=== PATIENT | male | born 1945 | race Caucasian/White ===

== ENCOUNTER 2025-05-22 18:43 | Inpatient (IN) ==
[2025-05-22] MEDS ORDERED: POLYETHYLENE (MIRALAX) 17 GM PACK PO PRN (20:35)
[2025-05-22] MEDS ORDERED: ALUMINUM/MAGNESIUM SUSP 30 ML UDC PO PRN (20:35)
[2025-05-22] MEDS ORDERED: ONDANSETRON INJ 2 MG/ML 2 ML VIAL IV PRN (20:35)
[2025-05-22] MEDS ORDERED: MoRPHine SULFATE 2 MG/ML CARP IV PRN (20:35)
--- NOTE | 2025-05-22 20:58 | History & Physical Report ---
"Date of Service May 22, 2025 Assessment & Plan (1) Acute appendicitis: (2) Hypertension: (3) Dyslipidemia: (4) Carotid artery stenosis: Plan Danny is 77 y/o male with PMH of carotid artery stenosis with hx of left MCA stroke s/p left carotid stent placement on 09/05/20, HTN, Hyperlipidemia, CKD here as a direct admit from [facility] due to acute appendicitis. Abdomen CT: acute appendicitis with fluid-filled dilated appendix and surrounding straining. Started on Zosyn. Transferred to [facility] for further management #Acute Appendicitis - Onset of symptoms 3 days ago with anorexia, abdominal discomfort - [facility] record reviewed - Abdomen CT: acute appendicitis with fluid-filled dilated appendix and surrounding straining. No evidence of rupture - Labs remarkable with hyponatremia, no leukocytosis - PAtient on arrival hemodynamically stable, no fever, no hypotension, Oxygent sat 97 at RA. BP elevated at 206/103 on arrival, patient asymptomatic - Pain 04/02 - Continue Zosyn - NPO at midnight - Pain control - LR 80 ml/hr at midnight - CBC AM, BMP am # Hypertension - Home meds ramipril, bisoprolol- hydrochlorothiazide - BP on arrival 206/103. Given hydralazine 5 mg IV once #CVA | Carotid artery stenosis s/p left carotid stent - Aspirin on hold - continue atorvastatin DVT prophylaxis: SCDs due to possible surgical intervention Admission and Anticipated Discharge Date Admission Date: May 22, 2025 History of Present Illness Primary Care Provider: Marguerite Ramirez PA-C Danny is 77 y/o male with PMH of carotid artery stenosis with hx of left MCA stroke s/p left carotid stent placement on 09/05/20, HTN, Hyperlipidemia, and CKD here as a direct admit from [facility] due to acute appendicitis. Onset of pain was 3 days ago with anorexia and abdominal discomfort. Abdomen CT: acute appendicitis with fluid-filled dilated appendix and surrounding straining. Started on Zosyn. Transferred to [facility] for further management. Denied any nausea, vomiting, no fever, no chills. Denied any chest pain SOB, palpitations or any other symptoms. Denied any edema. Allergies Allergy/AdvReac Type Severity Reaction Status Date / Time No Known Allergies Allergy Unverified 04/26/25 09:47 Home Medications Medication Instructions Recorded Confirmed Type atorvastatin 80 mg tablet 80 mg PO DAILY 05/29/21 05/22/25 History bisoprolol 10 1 tab PO DAILY 05/29/21 05/22/25 History mg-hydrochlorothiazide 6.25 mg tablet cholecalciferol (vitamin D3) 50 50 mcg PO DAILY 05/29/21 05/22/25 History mcg (2,000 unit) capsule (Vitamin D3) multivitamin (Multiple Vitamins 1 tab PO DAILY 05/29/21 05/22/25 History tablet) aspirin 81 mg tablet,delayed 81 mg PO DAILY 05/18/24 05/22/25 History release (Adult Aspirin Regimen) ramipril 10 mg capsule 10 mg PO DAILY #90 caps 05/18/24 05/22/25 Rx cetirizine 10 mg tablet (Zyrtec) 10 mg PO DAILY PRN Allergy Symptoms 05/22/25 05/22/25 History garlic 600 mg capsule 600 mg PO DAILY Cardiovascular 05/22/25 05/22/25 History health. oxycodone 5 mg tablet 5 mg PO Q6H PRN pain #12 tabs 05/23/25 Rx Past Med/Surg History Problem List (Updated 05/22/25 @ 22:00 by Teofilo Jackson MD) Acute appendicitis Osteoarthritis of left knee Pulmonary nodule Dyslipidemia Hypertension Carotid artery stenosis Flank pain (Acute) Vasovagal near syncope (Acute) Medical History Acute ischemic left middle cerebral artery (MCA) stroke Benign essential hypertension Chronic kidney disease Hyperlipidemia IFG (impaired fasting glucose) Symptomatic stenosis of left carotid artery Family History Mother Breast cancer Stroke Diabetes Father Hypertension Myocardial infarction Brother Hypertension Myocardial infarction Sister Stroke Social History Smoking Status: Former smoker Tobacco Type: Cigars Smoking End Date: Quit over 35 years.; Second Hand Exposure: No; Tobacco Cessation Education Requested by Patient: No Hx Alcohol Use: Yes Alcohol type: hard liquor Alcohol Intake Frequency Comment: Daily Hx Substance Use: No Preferred Language: Khmer Communication Ability: Effective Transportation Technician Required: No Beliefs That Will Affect Care: None Current Living Situation: Spouse Other Information That Helps Us Care for You: No Feels Safe at Home: Yes Safety Concerns: Feels Safe At This Time Physical Activity Frequency: 3-4 Times per Week Physical Activity Frequency Comment: Aerobics, biking Assistive Devices: Cane and Hospital Bed Assistive Devices Comment: Very seldom uses cane. Review of Systems Review of Systems: as per hpi Physical Exam Constitutional: WD/WN, vitals as above Eyes: PERRL, conjunctivae normal, anicteric sclerae ENMT: external ear and nose normal, oropharynx normal Respiratory: normal respiratory effort, lungs clear to auscultation Cardiovascular: RRR, no murmur, no edema Gastrointestinal (Abdomen): Inspection/Auscultation: abdomen normal to inspection and normal bowel sounds; abdomen not distended Percussion/Palpation: + abdomen tender (Right and left lower abdominal te ndernes) and abdomen soft; no guarding and abdomen not rigid Musculoskeletal: no cyanosis or clubbing, extremities motor strength 5/5 Skin: no rashes, warm and dry Results & Data Results & Data Vital Signs (Past 12 Hours) Vital Signs Temp Pulse Resp BP Pulse Ox O2 Del Method 05/22/25 20:07 36.8 C 68 18 206/103 H 97 Room Air Code Status & VTE Plan VTE Prophylaxis Plan VTE Prophylaxis will be ordered: Yes Supervising Physician Co-Signing Physician Notes Agree with Dr. Riki Jackson as above. Patient with acute appendicitis. Stable and non-toxic, pain controlled -Continue IV antibiotics, Zosyn -Pain control and anti-emetics as needed -Keep NPO -General Surgery consultation appreciated -Remainder as above Resident Activity Tracking Resident Involvement: Resident Care Provided Care Provided: Adult Hospital Medicine"
[2025-05-22 21:03] LABS: Appearance Urine Clear (Clear); Glucose Urine UA Negative (Negative)
[2025-05-22] MEDS: Patient's HEIGHT &/or WEIGHT Needed STA (21:14)
[2025-05-22] MEDS: 4.5GM X1 IV STA (21:20)
[2025-05-22] MEDS: ATORVASTATIN 40 MG TAB PO SCH (21:23)
[2025-05-22 21:29] LABS: Hematocrit (blood only) 42.9 % (42.0-52.0); Hemoglobin 15.2 g/dl (14.0-18.0); Immature Granulocytes # (auto) 0.04 K/uL (0.01-0.20); Immature Granulocytes % (auto) 0.4 %; Mean Corpuscular Hemoglobin 32.0 pg (25.0-34.0); Mean Corpuscular Volume 90.3 fL (80.0-100.0); Platelet Count 243 K/uL (130-400); RDW Standard Deviation 45.2 fL (36.4-46.3); Red Blood Count 4.75 M/uL (4.70-6.10); White Blood Count 9.83 K/ul (4.8-10.8)
[2025-05-22 21:40] LABS: Alanine Aminotransferase 14.0 U/L (7-52); Albumin Globulin Ratio 1.3 (0.9-2); Alkaline Phosphatase 88.0 U/L (34-104); Anion Gap 9.0 (3-11); Bilirubin,Total 1.1 mg/dl (0.2-1.0); Blood Urea Nitrogen 14.0 mg/dl (6-23); Calcium 8.5 mg/dl (8.6-10.3); Carbon Dioxide 24.0 mmol/L (21-32); Chloride 101.0 mmol/L (98-107); Creatinine Clr Calc Pharmacy 49.3 ml/min; Globulin 3.2 gm/dl (2.5-4.0); Glucose 101.0 mg/dl (70-99(Fasting)); Potassium 3.8 mmol/L (3.5-5.1); Sodium 134.0 mmol/L (136-145); Total Protein 7.3 gm/dl (6.0-8.3)
[2025-05-22 21:51] LABS: INR 1.0 (0.9-1.1); Partial Thromboplastin Time 26 Seconds (21-31); Prothrombin Time 10.6 Seconds (9.0-12.0)
[2025-05-23] MEDS: LACTATED RINGER'S 1,000 ML IV SCH
[2025-05-23] MEDS: PIPERACILLIN/TAZOBACTAM 4.5 GM/100 ML BAG IV SCH (04:55)
[2025-05-23 06:56] LABS: INR 1.0 (0.9-1.1); Partial Thromboplastin Time 27 Seconds (21-31); Prothrombin Time 11.0 Seconds (9.0-12.0)
--- NOTE | 2025-05-23 08:11 | Surgery Consultation ---
Date of Consultation May 23, 2025 Assessment & Plan (1) Acute appendicitis: Patient is a 79-year-old male with 4 days of abdominal pain. Originally presented to [facility] and upon workup was found to have acute appendicitis.The patient was transferred here as a direct admission under the medical service and general surgery was consulted for further surgical evaluation. The patient was seen and evaluated this morning at bedside. Resting comfortably in bed, vital signs stable, and is nontoxic-appearing. However the patient does have clinical exam findings consistent with appendicitis. Discussed with the patient treatment options which include conservative management with antibiotics versus surgical intervention. At this time patient agrees to undergo appendectomy. Discussed patient's case with attending surgeon, Dr. Loo, and from a surgical perspective recommend the following: - Keep n.p.o, continue IV fluids, antiemetics and pain medication as needed - Continue antibiotic coverage with Zosyn - Patient tentatively planned to undergo appendectomy for later this morning. Supervising Physician Co-Signing Physician Notes Patient seen and examined, labs and imaging reviewed, agree with above. 79-year-old male transferred from [facility] for appendicitis. He complains of abdominal pain starting few days ago that slowly migrated to the right lower quadrant. Some nausea, no fevers or vomiting. No prior abdominal surgeries, history of stroke status post carotid artery stent, takes a baby aspirin but no other blood thinners. On exam he is afebrile stable vitals. His abdomen is soft, tender to palpation with localized guarding in the right lower quadrant. WBC normal. CT scan personally reviewed and interpreted and agree with the assessment of a dilated appendix with some local inflammation consistent with an uncomplicated acute appendicitis. Plan for laparoscopic appendectomy Risks discussed include but not limited to bleeding, infection, normal appendix, conversion open, damage to surrounding structures, need for future more extensive surgery, abscess, and the risk of anesthesia Potential discharge this afternoon Wound care instructions, activity restrictions reviewed Acetaminophen and/or NSAIDs as needed pain, will prescribe oxycodone for breakthrough pain Follow-up in 2 weeks in general surgery clinic Return precautions given, call with questions or concerns History of Present Illness Reason for Consultation: acute appendicitis History of Present Illness Patient is a 79-year-old male who originally presented to outside facility with complaints of abdominal pain for 3 days. Patient states that on Friday he started with abdominal pain in his mid abdomen region. He originally contributed it to a stomach bug, however after 3 days the pain did not improve and started to migrate down into his lower abdomen, mostly on the right side, which prompted him to go to the emergency department. He states that he did have some ongoing nausea and decreased appetite however denies any episodes of emesis. The patient otherwise denies any new onset of fevers, chills, or changes in bowel or bladder habits. The patient was worked up at outside facility and and was found to have findings of appendicitis and was transferred here to [facility] for surgical evaluation. The patient was seen and evaluated this morning at bedside, resting comfortably in bed, vital signs stable. Patient states he is still experiencing lower abdominal pain, however denies any nausea or vomiting at this time. Patient denies any previous abdominal surgeries in the past and does not take any anticoagulation medication but is on Aspirin. Allergies Allergy/AdvReac Type Severity Reaction Status Date / Time No Known Allergies Allergy Unverified 04/26/25 09:47 Home Medications Medication Instructions Recorded Confirmed Type atorvastatin 80 mg tablet 80 mg PO DAILY 05/29/21 05/22/25 History bisoprolol 10 1 tab PO DAILY 05/29/21 05/22/25 History mg-hydrochlorothiazide 6.25 mg tablet cholecalciferol (vitamin D3) 50 50 mcg PO DAILY 05/29/21 05/22/25 History mcg (2,000 unit) capsule (Vitamin D3) multivitamin (Multiple Vitamins 1 tab PO DAILY 05/29/21 05/22/25 History tablet) aspirin 81 mg tablet,delayed 81 mg PO DAILY 05/18/24 05/22/25 History release (Adult Aspirin Regimen) ramipril 10 mg capsule 10 mg PO DAILY #90 caps 05/18/24 05/22/25 Rx cetirizine 10 mg tablet (Zyrtec) 10 mg PO DAILY PRN Allergy Symptoms 05/22/25 05/22/25 History garlic 600 mg capsule 600 mg PO DAILY Cardiovascular 05/22/25 05/22/25 History health. Patient History Medical History Acute ischemic left middle cerebral artery (MCA) stroke Benign essential hypertension Chronic kidney disease Hyperlipidemia IFG (impaired fasting glucose) Symptomatic stenosis of left carotid artery Family History Mother Breast cancer Stroke Diabetes Father Hypertension Myocardial infarction Brother Hypertension Myocardial infarction Sister Stroke Social History Smoking Status: Former smoker Tobacco Type: Cigars Smoking End Date: Quit over 35 years.; Second Hand Exposure: No; Tobacco Cessation Education Requested by Patient: No Hx Alcohol Use: Yes Alcohol type: hard liquor Alcohol Intake Frequency Comment: Daily Hx Substance Use: No Preferred Language: Luxembourgish Communication Ability: Effective 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 Review of Systems Constitutional: no fever, no chills and no weakness Respiratory: no cough, no dyspnea and no wheezing Cardiovascular: no chest pain, no palpitations and no syncope Gastrointestinal: as per Subjective / HPI, + abdominal pain and + nausea; no vomiting Genitourinary: no dysuria, no urinary frequency or no flank pain Physical Exam Constitutional: WD/WN, vitals as above Respiratory: normal respiratory effort, lungs clear to auscultation Cardiovascular: Rate/Rhythm: regular rate Gastrointestinal (Abdomen): Abdomen soft, nondistended, moderate tenderness palpation in the right lower quadrant, +McBurney point, +Rovsing Skin: no rashes, warm and dry Results & Data Vital Signs (Past 12 Hours) Vital Signs Temp Pulse Resp BP Pulse Ox O2 Del Method 05/23/25 07:42 36.8 C 60 18 181/87 H 97 Room Air 05/22/25 21:59 59 L 16 166/72 H 98 Room Air 05/22/25 20:07 36.8 C 68 18 206/103 H 97 Room Air 05/22/25 20:00 36.8 C 68 18 206/103 H 97 Room Air Diagnostic Findings Outside facility CT imaging with acute appendicitis with fluid-filled dilated appendix and surrounding stranding PG Care Time/CCT Total # of Minutes Spent Total Time Spent with Patient: Total time spent is greater than 50% in coordination of care (as documented) at patient's floor/unit and/or counseling patient: [place] [address] INT INP/OBS CARE 40MIN Patient Type New Medical Decision Making Straight Forward Diagnoses Acute appendicitis K35.80
[2025-05-23] MEDS: BISOPROLOL FUMARATE 5 MG TAB PO SCH (08:48)
[2025-05-23] MEDS: ENALAPRIL MALEATE 10 MG TAB PO SCH (08:48)
[2025-05-23] MEDS ORDERED: ATORVASTATIN 40 MG TAB PO SCH (09:00)
[2025-05-23] MEDS ORDERED: DEXAMETHASONE SOD INJ 4 MG/ML VIAL ONE (09:05)
[2025-05-23] MEDS ORDERED: NEOSTIGMINE METHYLSULFATE 1 MG/ML 10ML VIAL ONE (09:05)
[2025-05-23] MEDS ORDERED: ONDANSETRON INJ 2 MG/ML 2 ML VIAL ONE (09:05)
[2025-05-23] MEDS ORDERED: GLYCOPYRROLATE 0.2 MG/ML VIAL ONE (09:05)
[2025-05-23] MEDS ORDERED: LIDOCAINE 2% 2 ML VIAL/AMP(20MG/ML) INFIL ONE (09:05)
[2025-05-23] MEDS ORDERED: PROPOFOL IV EMULSION 10 MG/ML 20 ML VIAL IV ONE (09:05)
[2025-05-23] MEDS ORDERED: MIDAZOLAM HCL 1 MG/ML 2ML VIAL ONE (09:05)
[2025-05-23] MEDS ORDERED: ROCURONIUM BROMIDE 10 MG/ML 5 ML VIAL IV ONE (09:05)
--- NOTE | 2025-05-23 09:40 | Hospitalist Progress Note ---
"Date of Service May 23, 2025 Assessment & Plan (1) Acute appendicitis: Plan Mr. Delgado is 77 y/o male with PMH of carotid artery stenosis with hx of left MCA stroke s/p left carotid stent placement on 09/05/20, HTN, Hyperlipidemia, CKD here as a direct admit from [facility] due to acute appendicitis. Planning for OR with Dr. Loo on 05/23. Continue Zosyn empirically. #Acute Appendicitis Onset of symptoms 3 days ago with anorexia, abdominal discomfort Transferred to [place] on 05/22 from [facility] record reviewed on admission Abdomen CT: acute appendicitis with fluid-filled dilated appendix and surrounding straining. No evidence of rupture General Surgery consult appreciated Appendectomy on 05/[address] Loo Continue Zosyn 4.5 g IV q8h perioperatively No leukocytosis; afebrile Hemodynamically stable on 05/23; VSS postop Acetaminophen and morphine PRN for pain control # Hypertension Hold Home antihypertensive medications (ramipril, bisoprolol, and hydrochlorothiazide) prior to surgery; restart postop Hydralazine 5 mg IV x 1 in the emergency department for BP of 206/103 #CVA | Carotid artery stenosis s/p left carotid stent Reinitiate aspirin following surgery on 05/24 Continue atorvastatin DVT prophylaxis: SCDs prior to surgical intervention Disposition: Continued stay on [facility] following surgery with planned discharge on 05/24 if no setbacks overnight Admission and Anticipated Discharge Date Admission Date: May 22, 2025 Subjective Mr. Delgado is in good spirits this morning. He reports his right lower quadrant abdominal pain is a 1 out of 10 at present. Exacerbated by movements. He reports his pain is much better than it was when he came into the hospital; prior to admission, he had a gradual worsening of RLQ abdominal pain x 3 days. Otherwise, he feels comfortable at this time. No nausea or vomiting overnight. No fevers. He reports he had difficulty sleeping last night, but overall he is feeling well this morning. In regards to cardiac history, he does have a left carotid stent which was placed in 2019 after a stroke. He denies prior history of MN, CHF, diabetes, or kidney failure. No prior history of abdominal surgeries, per patient. ROS: Patient endorses RLQ abdominal pain, seasonal congestion, and nausea (resolved yesterday). Patient denies fever, dizziness/lightheadedness, headache, chest pain, pleuritic CP, SOB, cough, vomiting, diarrhea, burning with urination, blood in the urine o r stool, saddle anesthesia, or numbness or tingling in the arms or legs. ADDENDUM 1300: Patient was reassessed following his procedure. He reports he is in good spirits, but is still experiencing 5 out of 10 pain in the RLQ following appendectomy. He also does report some confusion coming out of anesthesia. Overall though, he reports no new complaints and is doing well. VSS. Patient's and daughter at bedside expressed a desire for patient to stay overnight in the hospital, and patient is amenable. Review of Systems Review of Systems: See HPI above Physical Exam Physical Exam: General: no acute distress; sitting upright in bed; pleasant affect; non-toxic appearing; cooperative; SpO2 97% on RA HEENT: normocephalic, atraumatic; no scleral icterus; PERRLA w/ EOMs intact; vision and hearing grossly intact Neck: supple; no lymphadenopathy; trachea midline Skin: warm, dry without signs of tenting; no cyanosis; no rashes, bruising, lesions, or erythema noted CV: chest wall NTP; RRR; S1/S2 normal; no murmurs/rubs/gallops; pulses intact and symmetric at radial, DP, and PT Lungs: no acute respiratory distress; symmetrical chest wall expansion; clear breath sounds across all lung medrano w/o adventitious sounds; no wheezing ABD: Soft, NTP in the left upper and lower quadrant; mildly TTP in the right lower quadrant; negative Rovsing sign BS present; no rebound/guarding; mild distention; no rashes or bruising on the abdomen or flanks bilaterally MSK: no tics or fasciculations; no edema noted in the LEs b/l, nonerythematous Neuro: A&Ox3; normal mood and affect; fluent speech; no focal deficits; sensation intact and symmetric in lower extremities bilaterally Results & Data Results & Data Vital Signs (Past 12 Hours) Vital Signs Temp Pulse Resp BP Pulse Ox O2 Del Method 05/23/25 07:42 36.8 C 60 18 181/87 H 97 Room Air 05/22/25 21:59 59 L 16 166/72 H 98 Room Air PG Care Time/CCT Total # of Minutes Spent Total Time Spent with Patient: Total time spent is greater than 50% in coordination of care (as documented) at patient's floor/unit and/or counseling patient: [place] [address] SUB INP/OBS CARE 2/35MIN Patient Type New History Comprehensive Exam Comprehensive Medical Decision Making Moderate Complexity Diagnoses Acute appendicitis K35.80"
--- NOTE | 2025-05-23 09:53 | Anesthesiology Consultation ---
Date of Service May 23, 2025 Assessment & Plan Chart Review Chart Review: Acceptable Risk for Surgery and Patient NOT seen in Pre Admission Testing Consults Requested none History Surgery Operation Date: 05/23/25 10:40 Proposed Procedures p Laparoscopic Appendectomy - Danielito Loo DO, FACS Height/Weight Height: 5 ft 7 in Weight: 89.9 kg Allergies Allergy/AdvReac Type Severity Reaction Status Date / Time No Known Allergies Allergy Unverified 04/26/25 09:47 Medications Home Medications Medication Instructions Recorded Confirmed Last Taken atorvastatin 80 mg tablet 80 mg PO DAILY 05/29/21 05/22/25 05/21/25 21:00 80 mg bisoprolol 10 1 tab PO DAILY 05/29/21 05/22/25 05/22/25 09:00 mg-hydrochlorothiazide 6.25 mg 10 tablet cholecalciferol (vitamin D3) 50 50 mcg PO DAILY 05/29/21 05/22/25 Unknown mcg (2,000 unit) capsule (Vitamin D3) multivitamin (Multiple Vitamins 1 tab PO DAILY 05/29/21 05/22/25 Unknown tablet) aspirin 81 mg tablet,delayed 81 mg PO DAILY 05/18/24 05/22/25 05/22/25 09:00 release (Adult Aspirin Regimen) 81 mg ramipril 10 mg capsule 10 mg PO DAILY #90 caps 05/18/24 05/22/25 05/22/25 10 cetirizine 10 mg tablet (Zyrtec) 10 mg PO DAILY PRN Allergy Symptoms 05/22/25 05/22/25 Unknown garlic 600 mg capsule 600 mg PO DAILY Cardiovascular 05/22/25 05/22/25 Unknown health. Active Medications Generic Name Dose Route Start Last Admin Trade Name Zackaryq PRN Reason Stop Dose Admin Atorvastatin Calcium 80 mg 05/22/25 21:00 05/22/25 21:23 Atorvastatin 40 Mg Tab PO 06/21/25 20:59 80 mg HS AMADO Administration Bisoprolol Fumarate 10 mg 05/23/25 09:00 05/23/25 08:48 Bisoprolol Fumarate 5 Mg Tab PO 06/22/25 08:59 Not Given DAILY AMADO Enalapril Maleate 20 mg 05/23/25 09:00 05/23/25 08:48 Enalapril Maleate 10 Mg Tab PO 06/22/25 08:59 Not Given DAILY AMADO Lactated Ringer's 1,000 mls @ 80 mls/hr 05/23/25 00:00 05/23/25 06:30 Lr IV 05/23/25 12:29 80 mls/hr .[id number] AMADO Infusion Piperacillin Sod/Tazobactam Sod 4.5 gm in 100 mls @ 25 mls/hr 05/23/25 04:00 05/23/25 09:14 Zosyn IV 06/02/25 03:59 Infused Q8H AMADO Infusion Protocol NPO Date Last Intake of Fluids: 05/22/25 Time Last Intake of Fluids: 23:20 Date Last Intake of Solids: 05/22/25 Time Last Intake of Solids: 13:00 Past Medical History Medical History Acute ischemic left middle cerebral artery (MCA) stroke Benign essential hypertension Chronic kidney disease Hyperlipidemia IFG (impaired fasting glucose) Symptomatic stenosis of left carotid artery Past Family History Family History Mother Breast cancer Stroke Diabetes Father Hypertension Myocardial infarction Brother Hypertension Myocardial infarction Sister Stroke Social History Smoking Status: Former smoker Smoking End Date: Quit over 35 years. Hx Alcohol Use: Yes Alcohol type: hard liquor alcohol intake frequency: 0-2 drinks per day Hx Substance Use: No substance use type: does not use Physical Exam Vital Signs Last Vital Signs Temp 36.8 C 05/23/25 09:34 Pulse 66 05/23/25 09:34 Resp 18 05/23/25 09:34 BP 179/92 H 05/23/25 09:34 Pulse Ox 97 05/23/25 09:34 O2 Del Method Room Air 05/23/25 09:34 Testing Laboratory Results 05/22/25 21:00 05/22/25 21:00 PT 11.0 Seconds (9.0-12.0) 05/23/25 05:51 INR 1.0 (0.9-1.1) 05/23/25 05:51 APTT 27 Seconds (21-31) 05/23/25 05:51 Urine Color Yellow 05/22/25 20:23 Urine Appearance Clear (Clear) 05/22/25 20:23 Urine pH 6.0 (4.5-7.5) 05/22/25 20:23 Ur Specific [place] 1.026 (1.000-1.030) 05/22/25 20:23 Urine Protein Negative (Negative) 05/22/25 20:23 Urine Glucose (UA) Negative (Negative) 05/22/25 20:23 Urine Ketones Negative (Negative) 05/22/25 20:23 Urine Nitrite Negative (Negative) 05/22/25 20:23 Ur Leukocyte Esterase Negative (Negative) 05/22/25 20:23
[2025-05-23] MEDS ORDERED: ATROPINE SULFATE 0.1 MG/ML 10ML SYR IV PRN (10:02)
[2025-05-23] MEDS ORDERED: ONDANSETRON INJ 2 MG/ML 2 ML VIAL IV PRN (10:02)
[2025-05-23] MEDS ORDERED: ARTIFICIAL TEARS OP OINT 3.5 GM TUBE ONE (10:06)
[2025-05-23] MEDS ORDERED: ESMOLOL HCL INJ 10 MG/ML 10ML VIAL IV ONE (10:08)
[2025-05-23] MEDS ORDERED: SUGAMMADEX SODIUM 200 MG/2 ML VIAL IV ONE (10:56)
--- NOTE | 2025-05-23 10:56 | Billing Data ---
Date of Service May 22, 2025 Coding Level of Care Code 97299 INT INP/OBS CARE
[2025-05-23] MEDS: BUPIVACAINE 0.5 % 5 MG/1 ML MPF 30ML VIAL ONE (10:57)
--- NOTE | 2025-05-23 11:10 | Operative Report ---
PG Post Operative Report Pre & Post Diagnosis Operation Date: 05/23/25 10:40 Pre-Op Diagnosis: Acute Appendicitis Post-Op Diagnosis: Acute Appendicitis I identified the patient and participated in the time-out.: Yes Procedure Operation Date: 05/23/25 10:40 Actual Procedures p Laparoscopic Appendectomy(Not Applicable) - Danielito Loo DO, ALESSIA Surgeon Danielito Loo DO, ALESSIA Banbury Mixer Operator Suyapa Mae Estimated Blood Loss 5 Findings Consistent with Post-Op Diagnosis Acute appendicitis, no perforation Specimens Appendix Anesthesia Type General Complications none Disposition Accompanied Patient To Recovery: No Disposition: Recovery Room Indications 79-year-old male with signs symptoms of acute appendicitis confirmed by CT scan, plan for laparoscopic appendectomy. The risks of the procedure were discussed, all questions were answered, and the patient agreed to proceed with surgery as planned. Description of Procedure The patient was properly identified, consented, and taken to the operating room where he was placed in the supine position. General endotracheal anesthesia was induced. SCDs and a safety belt were placed. Preoperative antibiotics were administered. A Tripathi catheter was not placed. The patient's abdomen was prepped and draped in the standard sterile fashion. Surgical timeout was performed and all parties were in agreement that this was the correct patient and procedure to be performed and we continued as planned. An incision was made superior to the left of the umbilicus. The Veress needle was inserted and saline drop test confirmed entry into the abdomen. Abdomen was insufflated carbon dioxide with the patient tolerated incident. The abdomen was then entered utilizing the Optiview technique with a 5 mm port and a 5 mm 30 degree scope. The laparoscope was inserted and no damage from initial trocar or Veress needle placement was noted, no gross abnormalities were noted within the 4 quadrants the abdomen. A 12 mm port was placed in the left lower quadrant with care not to damage the epigastric vessels, and a 5 mm port was placed in the suprapubic midline with care not to damage the bladder. The patient was placed in Trendelenburg position and rotated towards the left. The small bowel was swept away from the right lower quadrant. The cecum was grasped with an atraumatic grasper exposing the appendix. The appendix was moderately inflamed and there was no evidence of perforation. There was minimal reactive fluid in the pelvis. A window was created between the base of the appendix and the mesoappendix. A angeles loaded endoscopic stapler was then used to divide the appendix at its base. A angeles load was then used to divide the mesoappendix. Hemostasis was good. The appendix was placed in an Endo Catch bag and removed through the umbilical port site. The right lower quadrant and pelvis was irrigated and hemostasis was found to be good. The fascia of the 12 mm port was closed with an 0 Vicryl suture utilizing the Elías-Kurt device. The wound was irrigated, and the skin of all ports was closed with 4-0 Monocryl subcuticular sutures. Dermabond was placed over the wounds. The patient was extubated in the operating room and taken to the PACU where he recovered without apparent incident. All sponge, instrument and needle counts were correct at the conclusion of the procedure. The patient tolerated the procedure well. The physicians psychiatric technician assistant was present and scrubbed for the entire the case. She was critical in positioning the patient, prepping and draping, retraction exposure, driving the laparoscope, closure the incisions, and placement of the dressings. I attest to the content of the Intraoperative Record and any orders documented therein. Any exceptions are noted below.
[2025-05-23] MEDS: ACETAMINOPHEN 325 MG TAB PO PRN (12:39)
[2025-05-23] MEDS: MoRPHine SULFATE 2 MG/ML CARP IV PRN (15:44)
[2025-05-23] MEDS: MELATONIN 3 MG TAB PO PRN (20:33)
[2025-05-23 22:47] VITALS: PULSE 76
[2025-05-24 07:25] VITALS: BP 135/75; RESP 18; TEMP 97.5; O2SAT 95
--- NOTE | 2025-05-24 08:06 | Discharge Summary ---
Discharge Summary Date of Service May 24, 2025 Principal Dx & Hospital Course #1 = Principal Diagnosis (1) Acute appendicitis: (2) GABINO (acute kidney injury): Plan Mr. Delgado is 77 y/o male with PMH of carotid artery stenosis with hx of left MCA stroke s/p left carotid stent placement on 09/05/20, HTN, Hyperlipidemia, CKD here as a direct admit from [facility] due to acute appendicitis. Underwent an appendectomy with Dr. Loo on 05/23. Zosyn was continued perioperatively Day of discharge 05/24: Patient reports that he slept well last night. He is in good spirits this morning, and is excited to return home at this time. He also reports that he is eating well this morning. He does have some mild abdominal bloating, but reports he is passing gas. He reports no right lower quadrant abdominal pain at rest, but he does have 7 out of 10 pain with movements, such as when he got up to go to the bathroom this morning. Patient received counseling on pain medicine upon returning home; he reports he would prefer to take Tylenol as needed, and was counseled on avoiding strenuous activity for the next few days, as well as operating heavy machinery if he chooses to take oxycodone. ROS: Patient endorses right lower quadrant abdominal pain, and abdominal bloating. Patient denies fevers, chills, night sweats, dizziness/lightheadedness with walking, chest pain, SOB, cough, pleuritic CP, burning with urination, blood in the urine or stool, melena, diarrhea, or numbness or tingling in arms or legs. #Acute Appendicitis Onset of symptoms 3 days ago with anorexia, abdominal discomfort Transferred to [place] on 05/22 from [facility] Hospital records reviewed on admission Abdomen CT: acute appendicitis with fluid-filled dilated appendix and surrou nding straining. No evidence of rupture General Surgery consult appreciated Appendectomy on 05/[address] Loo Zosyn 4.5 g IV q8h perioperatively Given no fevers or leukocytosis, antibiotics were deferred at time of discharge Hemodynamically stable on 05/23 (postop) and 05/24 (day of discharge) Patient counseled on pain control with acetaminophen PRN and oxycodone as needed for breakthrough pain #GABINO Mild; patient's creatinine level was elevated at 1.61 on day of discharge (potential baseline around 1.3) NSS 500 mL IV bolus x 1 Will plan to hold HCTZ, and ramipril upon discharge Follow-up BMP in 1 week # Hypertension Patient will be sent home on new prescription for bisoprolol 10 mg tablets daily Hold HCTZ and ramipril until seen by PCP for follow-up #CVA | Carotid artery stenosis s/p left carotid stent Reinitiate aspirin following surgery on 05/24 Continue atorvastatin Disposition: Discharge home Notes For Next Care Provider Check BMP in 1 week and resume HCTZ and ramipril if creatinine improved Admission HPI Per Admitting Provider Danny is 77 y/o male with PMH of carotid artery stenosis with hx of left MCA stroke s/p left carotid stent placement on 09/05/20, HTN, Hyperlipidemia, and CKD here as a direct admit from [facility] due to acute appendicitis. Onset of pain was 3 days ago with anorexia and abdominal discomfort. Abdomen CT: acute appendicitis with fluid-filled dilated appendix and surrounding straining. Started on Zosyn. Transferred to [facility] for further management. Denied any nausea, vomiting, no fever, no chills. Denied any chest pain SOB, palpitations or any other symptoms. Denied any edema. Admission Exam Per Admitting Provider Constitutional: WD/WN, vitals as above Eyes: PERRL, conjunctivae normal, anicteric sclerae ENMT: external ear and nose normal, oropharynx normal Respiratory: normal respiratory effort, lungs clear to auscultation Cardiovascular: RRR, no murmur, no edema Gastrointestinal (Abdomen): Inspection/Auscultation: abdomen normal to inspection and normal bowel sounds; abdomen not distended Percussion/Palpation: + abdomen tender (Right and left lower abdominal tendernes) and abdomen soft; no guarding and abdomen not rigid Musculoskeletal: no cyanosis or clubbing, extremities motor strength 5/5 Skin: no rashes, warm and dry Discharge Exam General: no acute distress; sitting upright in bed; pleasant affect; non-toxic appearing; cooperative; SpO2 95% on RA HEENT: normocephalic, atraumatic; no scleral icterus; PERRLA w/ EOMs intact; vision and hearing grossly intact Neck: supple; no lymphadenopathy; trachea midline Skin: warm, dry without signs of tenting; no cyanosis; no rashes, bruising, lesions, or erythema noted CV: chest wall NTP; RRR; S1/S2 normal; no murmurs/rubs/gallops; pulses intact and symmetric at radial, DP, and PT Lungs: no acute respiratory distress; symmetrical chest wall expansion; clear breath sounds across all lung medrano w/o adventitious sounds; no wheezing ABD: Soft, mildly TTP in the right and left lower quadrant, specifically around the incision site; abdominal bloating/distention still present; incision sites are without clear drainage, or erythema to suggest infection; no rebound/guarding MSK: no tics or fasciculations; no edema noted in the LEs b/l, nonerythematous Neuro: A&Ox3; normal mood and affect; fluent speech; no focal deficits; sensation intact and symmetric in lower extremities bilaterally Discharge Plan Discharge Items Patient Disposition: Home - Self-Care Reason For Visit: ACUTE APPENDICITIS Discharge Diagnosis: Acute appendicitis Activity: Per Instructions section Lifting: No more than 10 pounds Bathing Comment: You may shower however no bath tubs, hot tubs, or pools x2 weeks Non-emergency contact: Primary Care Provider and Surgeon Call non-emergency contact if: your pain is not controlled, your temperature is above 101, your wound has increased redness and your wound has increased drainage Follow-up/Referrals: Danielito Loo DO, FACS [Physician] - 06/06/25 9:00 am (follow up with our general surgery office in 2 weeks for your post-operative check up ) Marguerite Ramirez PA-C [Primary Care Provider] - Diet: Regular and Low Fat Addtl Attending Provider Instructions: You were hospitalized at [facility] from 05/22 - 05/24 for right lower quadrant abdominal pain due to appendicitis. While at the hospital, you underwent a procedure known as an appendectomy to have your appendix removed. Per the surgical team, this was a fairly straightforward procedure, and there were no reported intraoperative complications. Please take time over the next few days to recover, and do not engage in any strenuous activity. There were no reported fevers during her hospitalization, and your white blood cell count remained within normal limits; therefore, we do not feel that you need to be sent home on antibiotics. Additionally, on day of discharge, your creatinine level was mildly elevated. Creatinine is a blood test that measures your kidney function. It is recommended that you hold the following medications until you are seen by your PCP in the next 1 to 2 weeks for follow-up: - Hold bispropololhydrochlorothiazide 10-6.25 tablets - Hold ramipril 10 mg tablets - New prescription: bispropolol 10mg tablets daily for high blood pressure It is recommended that you have blood work drawn in 1 week (called a basic metabolic panel or "BMP") prior to your PCP appointment to check your renal function before restarting hydrochlorothiazide or ramipril. For pain control, it is recommended that you take Tylenol every 6 hours as needed for your pain (please do not exceed 3000 mg daily). You have also been prescribed oxycodone 5 mg tablets as needed for breakthrough pain. Please also see the attached handouts regarding what foods to eat/avoid during your recovery. If you develop any new or worsening symptoms, such as fever, chills, chest pain, trouble breathing, intractable right lower quadrant abdominal pain, or intractable nausea/vomiting, please return to the emergency department immediately. It was a pleasure to take care of you. Please reach out any questions or concerns. Sincerely, The Hospital Medicine team at [facility] Addtl Fire Fighting Equipment Specialist Provider Instructions: SPECIAL CARE INSTRUCTIONS: * You have skin glue, called Dermabond, over your incisions. You may shower with this on, please do NOT pick at it. * You may shower 05/24/2025 . NO soaking in bath tubs, hot tubs, or pools for 2 weeks * No lifting greater than 10lbs. No exercise until cleared by surgeon. Light walking is accepted. * No driving while taking narcotic pain medication * No drinking alcohol while taking narcotic pain medication * May use Ibuprofen/Tylenol over the counter for pain as tolerated. Do not exceed 3grams of Tylenol per 24 hours * Expect some swelling and bruising. * Diet - resume your regular diet CALL YOUR DOCTOR IF: * Temperature above 101 degrees, nausea/vomiting, fever/chills * Pain not relieved by pain medicine ordered * There is increased drainage or redness from any incision * You have any unanswered questions or concerns [phone]. FOLLOW UP VISIT: If not already scheduled, please call the office for a follow-up visit. Office Pending Studies at Discharge: Yes Studies:: surgical pathology Stand-Alone Forms: My [facility] Medications and DC Order Prescriptions: New oxycodone 5 mg tablet 5 mg PO Q6H PRN (Reason: pain) Qty: 12 0RF Rx Instructions: Initial Therapy post surgery bisoprolol fumarate 10 mg tablet 10 mg PO DAILY Qty: 14 0RF Rx Instructions: Take one tablet by mouth daily Continued aspirin [Adult Aspirin Regimen] 81 mg tablet,delayed release (DR/EC) 81 mg PO DAILY Rx Instructions: Daily atorvastatin 80 mg tablet 80 mg PO DAILY cholecalciferol (vitamin D3) [Vitamin D3] 50 mcg (2,000 unit) capsule 50 mcg PO DAILY Patient Comments: Patient does take but has not used in awhile. multivitamin [Multiple Vitamins] Tablet 1 tab PO DAILY Patient Comments: Patient has not taken medication in awhile. cetirizine [Zyrtec] 10 mg Tablet 10 mg PO DAILY MDD 10 PRN (Reason: Allergy Symptoms) garlic 600 mg Capsule 600 mg PO DAILY MDD 1200mg Patient Comments: Patient has not taken medication in awhile. Rx Instructions: 2 capsules (600mg each) daily. Held ramipril 10 mg capsule 10 mg PO DAILY Qty: 90 3RF Hold Instructions: Resume on 05/30/25. HOLD until seen by PCP for follow-up bisoprolol-hydrochlorothiazide 10-6.25 mg tablet 1 tab PO DAILY Hold Instructions: Resume on 05/30/25. HOLD until seen by PCP for follow-up Discharge Orders: Discharge Order (Routine); Ordered 05/24/25 Ordered By: Jesus Duran/Other Patient Handouts: After an Appendectomy, Appendectomy Lap Dc Admission Data Admit Date/Time: 05/22/25 19:48 Attending Provider: Marisol Bradshaw Admit Provider: Teofilo Breen Primary Care Provider: Marguerite Ramirez Other Providers: Danielito Loo Other Interventions: Discharge Summary Assessment (RN) Last Done: 05/24/25 10:36 Hospital Stay Data Consultations 05/22/25 20:35 Consult General Surgery Routine Procedures Performed Operation Date: 05/23/25 10:40 Actual Procedures p Laparoscopic Appendectomy(Not Applicable) - Danielito Loo DO, FACS Pending Results Patient Have Any Pending Studies at Discharge: Yes Discharge Instructions Given to Patient (Per Discharging Provider) You were hospitalized at [facility] from 05/22 - 05/24 for right lower quadrant abdominal pain due to appendicitis. While at the hospital, you underwent a procedure known as an appendectomy to have your appendix removed. Per the surgical team, this was a fairly straightforward procedure, and there were no reported intraoperative complications. Please take time over the next few days to recover, and do not engage in any strenuous activity. There were no reported fevers during her hospitalization, and your white blood cell count remained within normal limits; therefore, we do not feel that you need to be sent home on antibiotics. Additionally, on day of discharge, your creatinine level was mildly elevated. Creatinine is a blood test that measures your kidney function. It is recommended that you hold the following medications until you are seen by your PCP in the next 1 to 2 weeks for follow-up: - Hold bispropololhydrochlorothiazide 10-6.25 tablets - Hold ramipril 10 mg tablets - New prescription: bispropolol 10mg tablets daily for high blood pressure It is recommended that you have blood work drawn in 1 week (called a basic metabolic panel or "BMP") prior to your PCP appointment to check your renal function before restarting hydrochlorothiazide or ramipril. For pain control, it is recommended that you take Tylenol every 6 hours as needed for your pain (please do not exceed 3000 mg daily). You have also been prescribed oxycodone 5 mg tablets as needed for breakthrough pain. Please also see the attached handouts regarding what foods to eat/avoid during your recovery. If you develop any new or worsening symptoms, such as fever, chills, chest pain, trouble breathing, intractable right lower quadrant abdominal pain, or intractable nausea/vomiting, please return to the emergency department immediately. It was a pleasure to take care of you. Please reach out any questions or concerns. Sincerely, The Hospital Medicine team at [facility] Supervising Physician Co-Signing Physician Notes ALTON Supervision Note: I did not personally see or examine the patient today, but I verified all davidson points of ALTON Coleman's assessment and plan with the following exceptions/additions: None Total Time Total Time Spent Total Time Spent (In Minutes): 35 [place] [address] INP/OBS DISCH >30 MIN Patient Type Established Medical Decision Making Moderate Complexity Diagnoses Acute appendicitis K35.80 GABINO (acute kidney injury) N17.9
[2025-05-24] MEDS: hydroCHLOROthiazide 25 MG TAB PO SCH (08:48)
[2025-05-24] MEDS: ASPIRIN 81 MG ECTAB PO SCH (08:50)
[2025-05-24 09:06] LABS: Hematocrit (blood only) 38.1 % (42.0-52.0); Hemoglobin 13.7 g/dl (14.0-18.0); Immature Granulocytes # (auto) 0.03 K/uL (0.01-0.20); Immature Granulocytes % (auto) 0.3 %; Mean Corpuscular Hemoglobin 32.4 pg (25.0-34.0); Mean Corpuscular Volume 90.1 fL (80.0-100.0); Platelet Count 223 K/uL (130-400); RDW Standard Deviation 45.1 fL (36.4-46.3); Red Blood Count 4.23 M/uL (4.70-6.10); White Blood Count 9.22 K/ul (4.8-10.8)
[2025-05-24 09:26] LABS: Alanine Aminotransferase 11.0 U/L (7-52); Albumin Globulin Ratio 1.5 (0.9-2); Alkaline Phosphatase 67.0 U/L (34-104); Anion Gap 10.0 (3-11); Bilirubin,Total 1.1 mg/dl (0.2-1.0); Blood Urea Nitrogen 18.0 mg/dl (6-23); Calcium 8.4 mg/dl (8.6-10.3); Carbon Dioxide 22.0 mmol/L (21-32); Chloride 100.0 mmol/L (98-107); Creatinine Clr Calc Pharmacy 40.4 ml/min; Globulin 2.6 gm/dl (2.5-4.0); Glucose 158.0 mg/dl (70-99(Fasting)); Potassium 3.7 mmol/L (3.5-5.1); Sodium 132.0 mmol/L (136-145); Total Protein 6.5 gm/dl (6.0-8.3)
[2025-05-24] MEDS: SODIUM CHLORIDE 0.9% 500 ML IV ONE (10:24)
--- NOTE | 2025-05-24 12:10 | Surgery Progress Note ---
Date of Service May 24, 2025 Assessment & Plan (1) History of laparoscopic appendectomy: Plan: POD 1 laparoscopic appendectomy, doing well Okay to DC to home Wound care instructions and activity restrictions reviewed Follow-up in 2 weeks in general surgery clinic, call clinic with questions or concerns APAP and NSAIDs as needed for pain oxycodone for breakthrough pain No indication for additional antibiotics Admission and Anticipated Discharge Date Admission Date: May 22, 2025 Subjective POD #1 laparoscopic appendectomy, doing well, minimal pain, feels much better than prior to surgery Physical Exam Constitutional: WD/WN, vitals as above Gastrointestinal (Abdomen): normal bowel sounds, soft, nontender, no hepatosplenomegaly Inspection/Auscultation: + abdominal surgical incision (No infection) Results & Data Vital Signs (Past 12 Hours) Vital Signs Temp Pulse Resp BP Pulse Ox O2 Del Method 05/24/25 07:24 36.4 C L 76 18 135/75 95 Room Air 05/24/25 03:13 36.3 C L 76 16 166/85 H 96 Room Air Laboratory Results Laboratory Results - last 24 hr 05/24/25 08:42 WBC 9.22 RBC 4.23 L Hgb 13.7 L Hct 38.1 L MCV 90.1 MCH 32.4 MCHC 36.0 RDW Std Deviation 45.1 RDW Coeff of Ruben 13.7 Plt Count 223 MPV 9.0 L Immature Gran % (Auto) 0.3 Neut % (Auto) 85.2 Lymph % (Auto) 7.9 [place] % (Auto) 6.5 Eos % (Auto) 0.0 Baso % (Auto) 0.1 Neut # (Auto) 7.85 H Lymph # (Auto) 0.73 L [place] # (Auto) 0.60 H Eos # (Auto) 0.00 Baso # (Auto) 0.01 Immature Gran # (Auto) 0.03 Sodium 132 L Potassium 3.7 Chloride 100 Carbon Dioxide 22 Anion Gap 10 BUN 18 Creatinine 1.61 H Est Cr Clr Drug Dosing 40.4 eGFR 43.50 BUN/Creatinine Ratio 11.2 Glucose 158 H Calcium 8.4 L Total Bilirubin 1.1 H AST 14 ALT 11 Alkaline Phosphatase 67 Total Protein 6.5 Albumin 3.9 Globulin 2.6 Albumin/Globulin Ratio 1.5 PG Care Time/CCT Total # of Minutes Spent Total Time Spent with Patient: Total time spent is greater than 50% in coordination of care (as documented) at patient's floor/unit and/or counseling patient: Coding Level of Care Code None Diagnoses History of laparoscopic appendectomy Z90.49
--- NOTE | 2025-05-26 15:45 | Anesthesiology Progress Note ---
Date of Service May 23 2025 Anesthesia Post Procedure Pain Intensity Bilateral Lower Abdomen: Pain Intensity: 1 Abdomen: Pain Intensity: 2 Transfer of Care Handoff Completed per policy Notes Mental Status: alert / awake / arousable Patient Amnestic to Procedure: Yes Nausea / Vomiting: adequately controlled Pain: adequately controlled Airway Patency, RR, SpO2: stable & adequate BP & HR: stable & adequate Hydration State: stable & adequate Anesthetic Complications: no major complications apparent and Pt Satisfied with anesthetic care
== END 2025-05-24 11:26 | disposition home or self-care (01) | DRG 398 ==
LOC: SUATTDRO 19:48 → 3N 19:48